=== PATIENT | female | born 1995 | race Caucasian/White ===

== ENCOUNTER 2024-10-17 15:49 | Emergency (ER) | payer SELFPAY ==
[2024-10-17 15:51] VITALS: BP 151/97
[2024-10-17 16:07] VITALS: BMI 29.8
--- NOTE | 2024-10-17 17:53 | ED.GENMED ---
History of Present Illness
General
Chief Complaint: Head Injury
Time Seen by Provider: 10/17/24 16:49
History of Present Illness
History of Present Illness:
Patient presents to the emergency department after fall with head injury. Injury occurred at 3 AM last night. Patient states she slipped while going up the stairs and struck the front of her face on the stairs in the back of her head on the
railing. She did not realize there was a laceration so she did not present to the hospital. She has had no nausea or vomiting since. Also endorses some pain to the right hand. No numbness tingling. No anticoagulation. Tetanus is up-to-date
Past History
Past History
ED Past Medical History: None; Negative Asthma, HTN, Hypercholesterolemia or NIDDM
ED Past Surgical History: None
Social History
Tobacco: Former smoker
Alcohol: Occasional
Personal: Single
Living: with family
Phy Exam
Physical Exam
Physical Exam:
GENERAL APPEARANCE: NAD, well developed/ well nourished
EYES lids/conjunctiva normal, PERRLA, EOMI
EARS/NOSE/THROAT Airway intact, no bleeding or intraoral trauma,
HEAD/NECK 8 cm linear laceration to the occiput there is no contamination, there is periorbital ecchymosis to the left eye with small amount of soft tissue swelling. The orbit appears normal
RESPIRATORY respiratory effort normal, speaks in full sentences, no accessory muscle use. Lungs clear to auscultation without rhonchi, wheezes, rales
CARDIAC Regular rate and rhythm
ABDOMINAL Soft, ND/NT. No bruising
MUSCLES/EXTREMITIES right hand with bruising dorsally and small abrasion. Full range of motion of all digits. Sensation intact throughout all digits. Cap refill intact throughout all digits
PELVIS No tenderness
BACK No tenderness or visible trauma
SKIN Warm, pink and dry.
NEUROLOGICAL GCS15, Speech is clear and appropriate. Normal level of consciousness. 5/5 strength in all extremities.
Course
Orders/Labs/Results
Orders:
Orders
10/17/24 17:53
CT Head W/o Iv Contrast Urgent
Comment:
Reason For Exam: head injury
Hand, Right 3 View [CR Hand - Right Min 3 Views] Urgent
Comment:
Reason For Exam: trauma
Vital Signs
Initial and Last Documented VS:
Initial Vital Signs
Temp Pulse Resp BP Pulse Ox
99.0 F 98 18 151/97 99
10/17/24 15:51 10/17/24 15:51 10/17/24 15:51 10/17/24 15:51 10/17/24 15:51
Last Documented Vital Signs
Temp Pulse Resp BP Pulse Ox
99.0 F 98 18 151/97 99
10/17/24 15:51 10/17/24 15:51 10/17/24 15:51 10/17/24 15:51 10/17/24 15:51
Procedures
Laceration Closure
Head:
Size of Wound in cm: 8
Description of Wound Edges: sharp
Preparation: cleaned with saline
Anesthesia: 1% Lidocaine with epi
Type of Closure: single layer closure
Skin Closure Material: skin mark
Additional information:
9 mark
*Critical Care Note
Total Time (30-74mins, 75-104mins- exclusive of procedures): Not Applicable
ED Attending Note
ED Attending Note
ED Attending Note:
Patient with head trauma last night. Given mechanism of injury and signs of laceration, will CT head to rule out intracranial injury or bony injury. No evidence of orbital trauma.
-
Portions of this chart may have been created with voice recognition software.� Occasional wrong word or��sound alike� substitutions may have occurred due to the inherent limitations of voice recognition software.
Discharge Plan
Departure
Patient Disposition: Home (Routine Discharge)
Date of Disposition: 10/17/24
Time of Disposition: 19:32
Patient with high blood pressure during this ER visit?: Yes
Discharge Problem:
Closed head injury, Laceration of scalp, Contusion of hand
Instructions: Concussion, Adult (DC), Head Injury in Adults (DC), Laceration Repair With [place] (DC)
Prescriptions:
No Action
sulfamethoxazole-trimethoprim 1 TABLET tablet
1 tab PO BID Qty: 5 0RF
nefzmqxaexlbfko-gmppoqsk-wghtr 1 EACH tablet
1 ea PO TIDPRN PRN (Reason: dysuria) Qty: 12 0RF
ondansetron 4 MG tablet,disintegrating
4 mg PO Q8HPRN PRN (Reason: Nausea/Vomiting) Qty: 10 0RF
Referrals:
NONE,* [Family Provider] -
Activity Restrictions/Additional Instructions:
mark out in 1 week
return to ER with new or worsening symptoms
Interventions
Interventions:
*Risk Screen - Suicide Last Done: 10/17/24 15:54
*General Assessment Last Done: 10/17/24 15:54
*Neglect/Abuse Screening Last Done: 10/17/24 15:54
*ED- Fall Risk Assessment Last Done: 10/17/24 16:03
*ED COVID-19 Vaccine History Last Done: 10/17/24 15:54
*Nursing Disposition Last Done: 10/17/24 19:38
ED- Neurological Assessment Last Done: 10/17/24 16:07
ED-Skin Assessment Last Done: 10/17/24 16:07
Discharge Date and Time
Discharge Date/Time: 10/17/24 19:39
Print Language: DJIBOUTIAN
== END 2024-10-17 19:39 | disposition home or self-care (01) ==
LOC: EMR 15:49
PROVIDERS: EMERGENCY PHYSICIAN Emergency Medicine
DX: S01.01XA Laceration without foreign body of scalp, initial encounter (principal); S60.221A Contusion of right hand, initial encounter; S60.511A Abrasion of right hand, initial encounter; W10.9XXA Fall (on) (from) unspecified stairs and steps, initial encounter; Z87.891 Personal history of nicotine dependence
CPT/HCPCS: 12004; 99284; 70450; 73130

== ENCOUNTER 2024-10-24 11:27 | Emergency (ER) | payer SELFPAY ==
[2024-10-24 11:33] VITALS: BP 129/95
[2024-10-24 11:48] VITALS: BMI 29.8
--- NOTE | 2024-10-24 11:56 | ED.GENMED ---
History of Present Illness
General
Chief Complaint: Wound Check/Suture Removal
Source: patient and records
Exam Limitations: none
Time Seen by Provider: 10/24/24 11:45
History of Present Illness
History of Present Illness:
29yoF presenting for staple removal. Patient was seen in the ED on 10/17/2024 after a fall down steps while intoxicated. She had a head CT at that time which came back negative. 9 mark were placed to her scalp. Since her injury, she has had
ongoing headaches and also has noticed double vision out of her left eye. She was seen by Dr. Chris 2 days ago and was diagnosed with a right superior oblique palsy and a prism was placed on her glasses which does seem to help. She states her
incision is healing well.
Past History
Past History
ED Past Medical History: None; Negative Asthma, HTN, Hypercholesterolemia or NIDDM
ED Past Surgical History: None
Social History
Tobacco: Former smoker
Alcohol: Occasional
Personal: Single
Living: with family
Phy Exam
General Physical Exam
General Presentation: well appearing and no apparent distress
General age: appears stated age
General Skin: warm and dry
General Habitus: normal
General Mental: alert
ENT Exam
ENT Exam: other (Scalp laceration well healed without signs of infection. Nine intact sutures noted. )
Skin Exam
Skin Exam: normal color and warm/dry
Psychiatric Exam
Psychiatric Exam: normal mood/affect
Course
Vital Signs
Initial and Last Documented VS:
Initial Vital Signs
Temp Pulse Resp BP Pulse Ox
97.8 F 89 18 129/95 98
10/24/24 11:33 10/24/24 11:33 10/24/24 11:33 10/24/24 11:33 10/24/24 11:33
Last Documented Vital Signs
Temp Pulse Resp BP Pulse Ox
97.8 F 89 18 129/95 98
10/24/24 11:33 10/24/24 11:33 10/24/24 11:33 10/24/24 11:33 10/24/24 11:33
MDM/Problems Addressed
Differential Diagnosis Includes:
29yoF here for staple removal after a head injury 1 week ago. Wound is well healed on exam without signs of infection. Nine mark removed with staple remover without issue. Patient reports ongoing headaches and double vision since her injury. She
has already seen ophthalmology and diagnosed with a R superior oblique palsy. She was provided with contact info for a PCP and neurology for f/u. She was discharged in stable condition.
*Critical Care Note
Total Time (30-74mins, 75-104mins- exclusive of procedures): Not Applicable
ED Attending Note
-
Portions of this chart may have been created with voice recognition software.� Occasional wrong word or��sound alike� substitutions may have occurred due to the inherent limitations of voice recognition software.
Discharge Plan
Departure
Patient Disposition: Home (Routine Discharge)
Date of Disposition: 10/24/24
Time of Disposition: 11:57
Patient with high blood pressure during this ER visit?: No
Discharge Problem:
Encounter for removal of mark
Instructions: Removing mark
Prescriptions:
No Action
sulfamethoxazole-trimethoprim 1 TABLET tablet
1 tab PO BID Qty: 5 0RF
krvgilnaqiagvya-iycdvxrb-xpadj 1 EACH tablet
1 ea PO TIDPRN PRN (Reason: dysuria) Qty: 12 0RF
ondansetron 4 MG tablet,disintegrating
4 mg PO Q8HPRN PRN (Reason: Nausea/Vomiting) Qty: 10 0RF
Referrals:
[facility] [Provider Group]
Flores Ponce MD [Active] -
Activity Restrictions/Additional Instructions:
Please follow-up with a family doctor and neurology. Return to the ER with any new or worsening symptoms.
Interventions
Interventions:
*Risk Screen - Suicide Last Done: 10/24/24 11:33
*General Assessment Last Done: 10/24/24 11:33
*Neglect/Abuse Screening Last Done: 10/24/24 11:33
*ED COVID-19 Vaccine History Last Done: 10/24/24 11:55
*Nursing Disposition Last Done: 10/24/24 12:02
ED-Skin Assessment Last Done: 10/24/24 11:47
Discharge Date and Time
Discharge Date/Time: 10/24/24 12:06
Print Language: ARMENIAN
== END 2024-10-24 12:06 | disposition home or self-care (01) ==
LOC: EMR 11:27
PROVIDERS: EMERGENCY PHYSICIAN Emergency Medicine
DX: Z48.02 Encounter for removal of sutures (principal); R51.9 Headache, unspecified; G83.89 Other specified paralytic syndromes; H53.2 Diplopia; Z91.81 History of falling; Z87.891 Personal history of nicotine dependence; Z88.8 Allergy status to other drugs, medicaments and biological substances
CPT/HCPCS: 99281